=== PATIENT | male | born 1955 | race African-American/Black ===

== ENCOUNTER 2017-02-24 09:48 | Emergency (ER) | payer OTHER ==
[~2017-02-24] VITALS: Ht 182.9 cm; Wt 85.0 kg
[2017-02-24] MEDS ORDERED: SODIUM CHLORIDE 0.9% 1,000 ML IV ONE (15:08)
[2017-02-24] MEDS ORDERED: ACETAMINOPHEN 325MG TABLET PO STA (15:08)
[2017-02-24] MEDS ORDERED: ONDANSETRON HCL 4MG/2ML VIAL IV ONE (15:15)
[2017-02-24 15:30] VITALS: BP 139/64
[2017-02-24 15:54] LABS: PROTHROMBIN TIME 10.9 sec (9.4-11.6)
[2017-02-24 16:05] LABS: BASOPHILS % 1.8 % (0.0-2.0); HEMATOCRIT. 37.2 % (42.0-52.0); HEMOGLOBIN. 12.1 g/dL (14.0-18.0); LYMPHOCYTES % 15.6 % (20.0-50.0); MEAN CORPUSCULAR HEMOGLOBIN 27.5 pg (28.0-32.0); MEAN CORPUSCULAR VOLUME 84.5 fL (80.0-94.0); MEAN PLATELET VOLUME 9.9 fl (7.4-10.4); MONOCYTES % 6.6 % (2.0-8.0); PLATELET 203 x1000/uL (130-400); RED CELL DISTRIBUTION WIDTH 13.7 % (11.6-14.6)
[2017-02-24 16:08] LABS: CHLORIDE 110 mEq/L (98-107)
== END 2017-02-24 17:07 | disposition home or self-care (01) ==
LOC: ER 10:16
DX: E11.42 Type 2 diabetes mellitus with diabetic polyneuropathy (principal); F17.200 Nicotine dependence, unspecified, uncomplicated; Z98.890 Other specified postprocedural states
CPT/HCPCS: 36415; 80053; 81003; 82962; 83690; 85025; 85610; 93970; 99285; J7030

== ENCOUNTER 2017-04-06 07:07 | Emergency (ER) | payer OTHER ==
[~2017-04-06] VITALS: Ht 175.3 cm; Wt 69.0 kg
[2017-04-06 07:12] VITALS: BP 110/60
[2017-04-06] MEDS ORDERED: PREDNISONE 20MG TABLET PO ONE (10:30)
[2017-04-06] MEDS ORDERED: DIPHENHYDRAMINE 25MG CAPSULE PO ONE (10:30)
== END 2017-04-06 11:21 | disposition home or self-care (01) ==
LOC: ER 07:23
DX: R21 Rash and other nonspecific skin eruption (principal); E11.9 Type 2 diabetes mellitus without complications
CPT/HCPCS: 99283; J7512; Q0163

== ENCOUNTER 2017-04-15 07:06 | Emergency (ER) | payer OTHER ==
[~2017-04-15] VITALS: Ht 182.9 cm; Wt 87.0 kg
[2017-04-15 11:45] VITALS: BP 111/66
[2017-04-15] MEDS ORDERED: DIPHENHYDRAMINE 25MG CAPSULE PO ONE (11:45)
== END 2017-04-15 12:47 | disposition home or self-care (01) ==
LOC: ER 07:06
DX: B35.4 Tinea corporis (principal); E11.9 Type 2 diabetes mellitus without complications; F17.200 Nicotine dependence, unspecified, uncomplicated; I10 Essential (primary) hypertension; Z86.73 Personal history of transient ischemic attack (TIA), and cerebral infarction without residual deficits; Z98.890 Other specified postprocedural states
CPT/HCPCS: 99283; Q0163

== ENCOUNTER 2017-05-01 21:12 | Emergency (ER) | payer OTHER ==
[~2017-05-01] VITALS: Ht 182.9 cm; Wt 91.0 kg
[2017-05-02 01:15] VITALS: BP 129/57
[2017-05-02] MEDS ORDERED: METHYLPREDNISOLONE SOD SUCC 125 MG/2 ML VIAL IM ONE (01:45)
[2017-05-02] MEDS ORDERED: BACITRACIN ZINC OINT UDPKT TOP ONE (01:45)
[2017-05-02] MEDS ORDERED: CEPHALEXIN 500MG CAPSULE PO ONE (01:45)
[2017-05-02] MEDS ORDERED: TETANUS, DIPHTHERIA, PERTUSSIS VAC/PF 0.5ML (>7YR OLD) IM ONE (01:45)
== END 2017-05-02 07:10 | disposition left against medical advice (07) ==
LOC: ER 22:10
DX: L40.9 Psoriasis, unspecified (principal); F17.200 Nicotine dependence, unspecified, uncomplicated; E11.9 Type 2 diabetes mellitus without complications; Z59.0 Homelessness
CPT/HCPCS: 90471; 90715; 96372; 99284; J2930